=== PATIENT | male | born 1970 | race Caucasian/White ===

== ENCOUNTER 2016-06-29 08:59 | Emergency (ER) | payer OTHER, BC, MEDICAID ==
[2016-06-29 09:11] VITALS: BP 134/72; PULSE 75; RESP 18; TEMP 98.2
[2016-06-29] MEDS ORDERED: HYDROcodone/APAP 7.5-325MG 1 EACH TAB PO ONE (09:15)
--- NOTE | 2016-06-29 09:18 | ED ---
Lower Extremity Injury HPI - General Chief Complaint: Extremity Injury, Lower Stated Complaint: LEFT FOOT CRUSHING INJURY - [facility] Time Seen by Provider: 06/29/16 09:12 Source: patient, RN notes reviewed Mode of arrival: ambulatory Limitations: no limitations - History of Present Illness Initial Comments: 46-year-old male presents emergency Department with chief complaint of left foot and leg pain. 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 Patient states that he twisted his ankle in the meantime. Patient primarily complains of mid foot pain. Patient has a small abrasion on the left lateral side of his leg. Patient is up-to-date on tetanus 4 years ago. Patient denies any other muscle skeletal injury. He states she's unable to bear weight. Patient states pain is 9/10 pain currently. - Related Data Previous Rx's Medication Instructions Recorded HYDROcodone/APAP 7.5-325MG [Hermosa 1 tab PO Q6HR PRN #20 tab 06/29/16 7.5-325] Ibuprofen [Motrin] 600 mg PO Q8HR PRN #30 tab 06/29/16 Allergies Allergy/AdvReac Type Severity Reaction Status Date / Time No Known Allergies Allergy Verified 06/29/16 09:09 Review of Systems ROS Statement: Those systems with pertinent positive or pertinent negative responses have been documented in the HPI. ROS Other: All systems not noted in ROS Statement are negative. Past Medical History Past Medical History: No Reported History History of Any Multi-Drug Resistant Organisms: None Reported Past Surgical History: Orthopedic Surgery Additional Past Surgical History / Comment(s): hip replacement Past Psychological History: No Psychological Hx Reported Smoking Status: Never smoker Past Alcohol Use History: None Reported Past Drug Use History: None Reported General Exam Limitations: no limitations General appearance: alert, in no apparent distress Head exam: Present: atraumatic, normocephalic, normal inspection Respiratory exam: Present: normal lung sounds bilaterally. Absent: respiratory distress, wheezes, rales, rhonchi, stridor Cardiovascular Exam: Present: regular rate, normal rhythm, normal heart sounds. Absent: systolic murmur, diastolic murmur, rubs, gallop, clicks Extremities exam: Present: other (Left foot there is moderate swelling and ecchymosis noted mid foot primarily over the first second third metatarsal region there is no obvious deformities to the foot or toes. There is abrasion on lateral aspect of the left lower leg there is no malleolar tenderness) Skin exam: Present: warm, dry, intact, normal color. Absent: rash Course Vital Signs 06/29/16 09:09 Temperature 98.2 F Pulse Rate 75 Respiratory 18 Rate Blood Pressure 134/72 O2 Sat by Pulse 100 Oximetry Medical Decision Making - Medical Decision Making 46-year-old male presented for left foot injury. There is no acute fracture per radiology reading. Patient did have a crush type injury to his foot. We did discuss compartment syndrome patient has no evidence of his this time. Return parameters were discussed patient with follow-up with orthopedics as he seen in the past Return parameters were discussed. Disposition Clinical Impression: Sprain of left foot, Crush injury of left foot, Abrasion of left leg Disposition: HOME SELF-CARE Condition: Stable Instructions: Foot Contusion (ED) Additional Instructions: Please return to the Emergency Department if symptoms worsen or any other concerns. Prescriptions: HYDROcodone/APAP 7.5-325MG [Hermosa 7.5-325] 1 tab PO Q6HR PRN #20 tab PRN Reason: Pain Ibuprofen [Motrin] 600 mg PO Q8HR PRN #30 tab PRN Reason: Pain Time of Disposition: 09:52
--- NOTE | 2016-06-29 09:41 | XR ---
EXAMINATION TYPE: XR tibia fibula LT DATE OF EXAM: 06/29/2016 9:27 AM CLINICAL HISTORY: Injury with pain. TECHNIQUE: Two views of the left leg are obtained. COMPARISON: None. FINDINGS: There is no acute fracture or dislocation seen in the left tibia or fibula. The left knee and ankle joints appear within normal limits. The overlying soft tissue appears unremarkable. IMPRESSION: There is no acute fracture or dislocation seen in the left tibia or fibula.
--- NOTE | 2016-06-29 09:42 | XR ---
EXAMINATION TYPE: XR foot complete LT DATE OF EXAM: 06/29/2016 9:27 AM CLINICAL HISTORY: Left foot pain after injury. TECHNIQUE: Frontal, lateral, and oblique images of the left foot are obtained. COMPARISON: None FINDINGS: There is no acute fracture/dislocation evident in the left foot. The joint spaces in the left foot appear within normal limits. Small size inferior calcaneal spur is present. The overlying s oft tissue appears unremarkable. IMPRESSION: There is no acute fracture or dislocation in the left foot.
== END 2016-06-29 10:28 | disposition home or self-care (01) ==
LOC: EC 08:59
DX: S97.82XA Crushing injury of left foot, initial encounter (principal); S93.602A Unspecified sprain of left foot, initial encounter; S90.32XA Contusion of left foot, initial encounter; S80.812A Abrasion, left lower leg, initial encounter; X50.1XXA Overexertion from prolonged static or awkward postures, initial encounter; Y92.79 Other farm location as the place of occurrence of the external cause; Y93.89 Activity, other specified; Y99.0 Civilian activity done for income or pay
CPT/HCPCS: 99283

== ENCOUNTER → 2017-05-04 | Outpatient (CLI) | payer BC ==
--- NOTE | 2017-05-04 11:14 | SFUN ---
SLEEP STUDY FOLLOW UP NOTE DATE OF SERVICE: 05/04/2017 A 47-year-old gentleman has been followed in sleep center for treatment of severe obstructive sleep apnea-hypopnea syndrome, previously apnea-hypopnea index was 99 per hour. The patient continued to use his CPAP equipment practically every night and no snoring with the machine. Sometimes he feels that the pressure is high for him when he wakes up in the middle of the night. His [place] Sleepiness Scale today is only 1. I checked his CPAP unit. Usage is 27/30 nights for more than 4 hours. Average usage is 7.5 hours. Leak is 25 L/minute, which is acceptable. Apnea-hypopnea index is only 0.8, which is totally normal. The patient has lost about 30 pounds for the last 6 months and feels that his condition related to sleep apnea improved after losing weight. MEDICATIONS: Nexium, Bystolic. PHYSICAL EXAM: During physical exam, patient in no distress. VITAL SIGNS: BP 128/70, HR 80, RR 16 height 5 feet, 6 inches, weight 202, BMI 32.6, temperature 98, oxygen saturation on room air 100%. HEENT: PERRLA, EOMI. Oropharynx extremely low position of soft palate. NECK: Supple, no JVD. Thyroid is not palpable. LUNGS: Clear to percussion and to auscultation. Good air exchange. No wheezing or rhonchi. HEART: S1, S2 regular. No murmurs, gallops, or rubs. ABDOMEN: Slightly obese. EXTREMITIES: No clubbing or cyanosis. CLIP COATER: Awake, alert, and oriented X3. Cranial nerves 2 to 7 intact. There is no fasciculation or atrophy. noted. No focal deficits observed. IMPRESSION: 1. Obstructive sleep apnea-hypopnea syndrome. Patient demonstrated good compliance with treatment, respiration on full control with CPAP therapy benefitting from treatment. Previously severe obstructive sleep apnea. Since that time, the patient lost about 30 pounds of his weight. 2. Mild obesity. 3. Hypertension. 4. Acid reflux. 5. Status post bilateral knee surgery. 6. Status post nasal surgery in the past. 7. 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 PLAN: 1. Continue treatment with CPAP every night for the whole night. 2. Continue losing weight. 3. Sleep hygiene with regular time in bed for at least 7-2 hours. 4. Precautions related to driving. No driving if feeling any sleepiness. The patient may continue to drive truck with precautions. He is aware about civil and criminal liability for unsafe driving. 5. I will consider to repeat sleep testing for evaluation of patient breathing because he lost around 30 pounds. 6. We may consider to decrease pressure in CPAP unit. Presently, the patient wished to continue treatment with the same pressure. Thank you very much for allowing me to participate in management of your patient. Sincerely, Shankar Rahman MD, PhD, FAASM Diplomat of [employer] Interventional Radiology Tech of [facility] [place] MMODL / IJN: [id number] /
== END | disposition home or self-care (01) ==
LOC: SLEEP 09:49
PROVIDERS: ATTEND Internal Medicine
DX: G47.33 Obstructive sleep apnea (adult) (pediatric) (principal); E66.9 Obesity, unspecified; I10 Essential (primary) hypertension; K21.9 Gastro-esophageal reflux disease without esophagitis; Z68.32 Body mass index [BMI] 32.0-32.9, adult; Z98.890 Other specified postprocedural states; Z96.653 Presence of artificial knee joint, bilateral; Z99.89 Dependence on other enabling machines and devices; Z79.899 Other long term (current) drug therapy

== ENCOUNTER → 2018-06-28 | Outpatient (CLI) | payer BC ==
--- NOTE | 2018-06-28 16:56 | PN ---
PROGRESS NOTE DATE OF SERVICE: 06/28/2018 48-year-old gentleman who has been followed in Sleep Center for treatment of obstructive sleep apnea-hypopnea syndrome. Patient continued to use CPAP equipment every night for the whole night without significant problems related to mask fitting, pressure and humidification. No snoring on the machine. [place] Sleepiness Scale is 1. I checked patient's CPAP unit. CPAP pressure is 10 cm of water. I checked usage for the whole year. The patient uses 345 nights out of 365 nights and it was more than 4 hours 333 nights out of 365 nights which showed very good compliance. Average usage is 7 hours. Apnea-hypopnea index reading 0.5. Leak 25 L/minute which is borderline. MEDICATIONS: Nexium, Bystolic. PHYSICAL EXAM: Patient in no distress. BP 119/104, HR 74, RR 16, height 66 inches, weight 204.4 pounds, which is about 2 pounds more than during the previous visit. BMI 32.9, temperature 98.7, oxygen saturation on room air 98%. Oropharynx extremely low position of soft palate. Neck Supple, no JVD. Thyroid is not palpable. LUNGS: Clear to percussion and to auscultation. Good air exchange. No wheezing or rhonchi. HEART: S1, S2 regular. No murmurs, gallops, or rubs. ABDOMEN: Soft and nontender. Bowel sounds are present. No organomegaly appreciated. EXTREMITIES: No clubbing or cyanosis. SCIENCE INTERN Awake, alert, and oriented X3. Cranial nerves 2 to 7 intact. There is no fasciculation or atrophy. noted. No focal deficits observed. IMPRESSION: 1. Obstructive sleep apnea-hypopnea syndrome, very severe by results of sleep test in 2010. At that time, apnea-hypopnea index was 99 on full control with CPAP at 10 cm of water. Patient demonstrated great compliance with treatment benefitting from treatment. 2. Mild obesity. 3. Hypertension. 4. Acid reflux. 5. Status post bilateral knee surgery. 6. Status post nasal surgery in the past. PLAN: 1. Patient will continue to use CPAP equipment every night for the whole night. 2. Losing and watching weight. 3. Sleep hygiene with regular time in bed for at least 7-1/2 hours. 4. Precautions related to driving. No driving if feeling sleepiness. The patient is a commercial truck driver. He is aware about civil and criminal liability regarding safe driving. Presently, no symptoms of excessive daytime sleepiness while using CPAP. 5. Will maintain all necessary CPAP supplies, prescription including mask, tube, filters. Thank you very much for allowing me to participate in management of your patient. Sincerely, Shankar Rahman MD, PhD, FAASM Diplomat of [employer] Accounting Tutor of [facility] [place] MMODL / IJN: [id number] /
== END ==
LOC: SLEEP 13:50
PROVIDERS: ATTEND Internal Medicine
DX: G47.33 Obstructive sleep apnea (adult) (pediatric) (principal); E66.9 Obesity, unspecified; I10 Essential (primary) hypertension; K21.9 Gastro-esophageal reflux disease without esophagitis; Z98.890 Other specified postprocedural states; Z99.89 Dependence on other enabling machines and devices; Z79.899 Other long term (current) drug therapy

== ENCOUNTER 2020-09-24 20:32 | Emergency (ER) | payer BC ==
[2020-09-24 20:41] VITALS: TEMP 97.6
[2020-09-24 21:19] VITALS: RESP 18
[2020-09-24] MEDS ORDERED: SODIUM CHLORIDE 0.9% 1,000 ML IV STA (21:35)
[2020-09-24 22:17] LABS: Basophils % (A) 1 %; Eosinophils # (A) 0.1 k/uL (0-0.7); Eosinophils % (A) 1 %; HCT 45.3 % (39.0-53.0); HGB 15.8 gm/dL (13.0-17.5); Lymphocytes % (A) 36 %; MCH 31.7 pg (25.0-35.0); MCHC 34.8 g/dL (31.0-37.0); MCV 90.9 fL (80.0-100.0); Mean Platelet Volume 7.2; Monocytes # (A) 0.3 k/uL (0-1.0); Monocytes % (A) 5 %; Neutrophils % (A) 55 %; Platelet Count 319 k/uL (150-450); RBC 4.98 m/uL (4.30-5.90); RDW 12.8 % (11.5-15.5); WBC 5.5 k/uL (3.8-10.6)
[2020-09-24 22:34] LABS: ALT 43 U/L (4-49); AST 39 U/L (17-59); African American GFR (CKD) >90 (>60 ml/min/1.73 sqM); Albumin 4.7 g/dL (3.5-5.0); Alkaline Phosphatase 106 U/L (38-126); Amylase 66 U/L (30-110); Anion Gap 15 mmol/L; Blood Urea Nitrogen 18 mg/dL (9-20); Calcium 9.3 mg/dL (8.4-10.2); Carbon Dioxide 24 mmol/L (22-30); Chloride 108 mmol/L (98-107); Glucose 103 mg/dL (74-99); Lipase 202 U/L (23-300); Magnesium 2.1 mg/dL (1.6-2.3); Non-African American GFR(CKD) >90 (>60 ml/min/1.73 sqM); Potassium 3.9 mmol/L (3.5-5.1); Sodium 147 mmol/L (137-145); Total Bilirubin 0.4 mg/dL (0.2-1.3); Total Protein 7.2 g/dL (6.3-8.2)
--- NOTE | 2020-09-24 22:57 | ED ---
Alcohol HPI - General Chief Complaint: Alcohol Stated Complaint: alcohol Time Seen by Provider: 09/24/20 21:03 Source: patient, RN notes reviewed Mode of arrival: ambulatory Limitations: no limitations - History of Present Illness Initial Comments: Patient is a 50-year-old male with a history of alcoholism. He notes he drinks a fifth of whiskey per day. He notes that he drank a fifth lost some today before coming in stating that he wants help. Patient denies any suicidal or homicidal ideations. He was a well-appearing 50-year-old male who is acutely intoxicated with alcohol. He him in with his dad. He denied any other symptoms or complaints. He denied any chest pain shortness of breath headache nausea vomiting diarrhea constipation fever fatigue chills history of withdrawal symptoms such as seizures or tremors. - Related Data Home Medications Medication Instructions Recorded Confirmed Losartan [Cozaar] 25 mg PO DAILY 09/24/20 09/24/20 Omeprazole 20 mg PO DAILY 09/24/20 09/24/20 buPROPion XL [Wellbutrin Xl] 150 mg PO DAILY 09/24/20 09/24/20 Allergies Allergy/AdvReac Type Severity Reaction Status Date / Time No Known Allergies Allergy Verified 09/24/20 21:44 Review of Systems ROS Statement: Those systems with pertinent positive or pertinent negative responses have been documented in the HPI. ROS Other: All systems not noted in ROS Statement are negative. Past Medical History Past Medical History: No Reported History History of Any Multi-Drug Resistant Organisms: None Reported Past Surgical History: Orthopedic Surgery Additional Past Surgical History / Comment(s): hip replacement Past Psychological History: No Psychological Hx Reported Smoking Status: Never smoker Past Alcohol Use History: None Reported, Abuse, Daily, Heavy Past Drug Use History: None Reported General Exam Limitations: no limitations General appearance: alert, in no apparent distress, appears intoxicated Head exam: Present: atraumatic, normocephalic, normal inspection Eye exam: Present: normal appearance, PERRL, EOMI. Absent: scleral icterus, conjunctival injection, periorbital swelling Neck exam: Present: normal inspection Respiratory exam: Present: normal lung sounds bilaterally. Absent: respiratory distress, wheezes, rales, rhonchi, stridor Cardiovascular Exam: Present: regular rate, normal rhythm, normal heart sounds. Absent: systolic murmur, diastolic murmur, rubs, gallop, clicks GI/Abdominal exam: Present: soft, normal bowel sounds. Absent: distended, ten derness, guarding, rebound, rigid Extremities exam: Present: normal inspection, full ROM, normal capillary refill. Absent: tenderness, pedal edema, joint swelling, calf tenderness Neurological exam: Present: alert, oriented X3 Psychiatric exam: Present: normal affect, normal mood Skin exam: Present: warm, dry, intact, normal color. Absent: rash Course Vital Signs 09/24/20 09/24/20 09/24/20 20:37 21:07 21:19 Temperature 97.6 F Pulse Rate 83 76 73 Respiratory 18 20 18 Rate Blood Pressure 123/87 126/94 126/94 O2 Sat by Pulse 95 94 L 91 L Oximetry 09/24/20 22:00 Temperature Pulse Rate 75 Respiratory 18 Rate Blood Pressure 117/75 O2 Sat by Pulse 95 Oximetry Medical Decision Making - Medical Decision Making 50-year-old male acutely intoxicated with alcohol looking for help. Labs, 1 L normal saline ordered. Labs unremarkable. Breath alcohol test 0.205. Patient does have right home. Case discussed with Dr. Lomeli, patient discharge home with list of resources. - Lab Data Result diagrams: 09/24/20 21:52 09/24/20 21:52 Lab Results 09/24/20 09/24/20 Range/Units 21:52 21:52 WBC 5.5 (3.8-10.6) k/uL RBC 4.98 (4.30-5.90) m/uL Hgb 15.8 (13.0-17.5) gm/dL Hct 45.3 (39.0-53.0) % MCV 90.9 (80.0-100.0) fL MCH 31.7 (25.0-35.0) pg MCHC 34.8 (31.0-37.0) g/dL RDW 12.8 (11.5-15.5) % Plt Count 319 (150-450) k/uL MPV 7.2 Neutrophils % 55 % Lymphocytes % 36 % Monocytes % 5 % Eosinophils % 1 % Basophils % 1 % Neutrophils # 3.0 (1.3-7.7) k/uL Lymphocytes # 2.0 (1.0-4.8) k/uL Monocytes # 0.3 (0-1.0) k/uL Eosinophils # 0.1 (0-0.7) k/uL Basophils # 0.0 (0-0.2) k/uL Sodium 147 H (137-145) mmol/L Potassium 3.9 (3.5-5.1) mmol/L Chloride 108 H (98-107) mmol/L Carbon Dioxide 24 (22-30) mmol/L Anion Gap 15 mmol/L BUN 18 (9-20) mg/dL Creatinine 0.95 (0.66-1.25) mg/dL Est GFR (CKD-EPI)AfAm >90 (>60 ml/min/1.73 sqM) Est GFR (CKD-EPI)NonAf >90 (>60 ml/min/1.73 sqM) Glucose 103 H (74-99) mg/dL Calcium 9.3 (8.4-10.2) mg/dL Magnesium 2.1 (1.6-2.3) mg/dL Total Bilirubin 0.4 (0.2-1.3) mg/dL AST 39 (17-59) U/L ALT 43 (4-49) U/L Alkaline Phosphatase 106 (38-126) U/L Total Protein 7.2 (6.3-8.2) g/dL Albumin 4.7 (3.5-5.0) g/dL Amylase 66 (30-110) U/L Lipase 202 (23-300) U/L Disposition Clinical Impression: Alcoholic intoxication Disposition: HOME SELF-CARE Condition: Stable Instructions (If sedation given, give patient instructions): Alcohol Intoxication (ED) Additional Instructions: Please return to the Emergency Department if symptoms worsen or any other concerns. Follow-up with primary care as needed. Go to AA and strep throat recovery. Is patient prescribed a controlled substance at d/c from ED?: No Referrals: Jamal Yang DO [Primary Care Provider] - 1-2 days Time of Disposition: 23:03
[2020-09-24 23:15] LABS: Appearance,Urine Clear (Clear); Bilirubin,Urine Negative (Negative); Blood,Urine Negative (Negative); Color,Urine Yellow; Glucose,Urine (UA) Negative (Negative); Ketones,Urine 1+ (Negative); Leukocyte Esterase,Urine Negative (Negative); Nitrite,Urine Negative (Negative); PH, Urine 5.5 (5.0-8.0); Protein,Urine Trace (Negative); Specific Gravity,Urine 1.029 (1.001-1.035); Urobilinogen,Urine <2.0 mg/dL (<2.0)
[2020-09-24 23:38] VITALS: BP 116/82; PULSE 72
== END 2020-09-24 23:39 | disposition home or self-care (01) ==
LOC: EC 20:32
DX: F10.229 Alcohol dependence with intoxication, unspecified (principal)
CPT/HCPCS: 36415; 80053; 81003; 82150; 83690; 83735; 85025; 96360; 99283